=== PATIENT | male | born 1995 | race Two or more races ===

== ENCOUNTER 2016-11-09 16:09 | Emergency (ER) | payer SELFPAY ==
[2016-11-09] MEDS ORDERED: Lidocaine 2% 10 ML Amp INJECT ONE (17:50)
--- NOTE | 2016-11-09 17:57 | EDM.PDOC ---
ED HPI Trauma - General Chief Complaint: Upper Extremity Injury/Pain Stated Complaint: CUT FINGER L HAND Time Seen by Provider: 11/09/16 17:45 Source: Reports: Patient History Limitations: Reports: No limitations - History of Present Illness INITIAL COMMENTS - FREE TEXT/NARRATIVE: 21 yo male cut the L index finger tip with a filet knife at home before arrival. Last tetanus was last year per his report. Here for evaluation/repair. Symptom Onset Date: 11/09/16 Symptom Onset Time: 16:15 Occurred When: just prior to arrival Occurred Where: home Method of Injury: other (cut) Severity: moderate Pain/Injury Location: Reports: upper extremity, left Consciousness: Reports: no loss of consciousness Associated Symptoms: Reports: denies other symptoms Allergies/ADRs: Allergies No Known Allergies Allergy (Verified 11/09/16 18:29) Home Medications: Ambulatory Orders NK [No Known Home Meds] 11/09/16 [Confirmed 11/09/16] Review of Systems - Review of Systems Review Of Systems: See Below Constitutional: Reports: no symptoms Musculoskeletal: Reports: no symptoms Skin: Reports: wound (L index finger tip) Neurological: Reports: No Symptoms Trauma Exam - Physical Exam Exam: See Below Exam Limited By: No limitations General Appearance: Reports: alert, WD/WN, no apparent distress Head: Reports: atraumatic, normocephalic Extremities: Reports: tenderness (L index finger tip) Neurologic: Reports: no motor/sensory deficits, alert, normal mood/affect, oriented x 3 Skin: Reports: Normal color, Other (Near avulsion of the tip of the L index finger. Bleeding controlled at time of exam. ) Course - Vital Signs Text/Narrative:: Digital block with 5 ml of 2% lidocaine. Hand cleaned per nursing. Wound closure with 5-0 Prolene. Dressing applied per nursing. Last Recorded V/S: Last Vital Signs Temp 36.6 C 11/09/16 18:23 Pulse 98 11/09/16 18:23 Resp 14 11/09/16 18:23 BP 140/80 11/09/16 18:23 Pulse Ox 100 11/09/16 18:23 - Orders/Labs/Meds Meds: Medications Discontinued Medications Generic Name Dose Route Start Last Admin Trade Name Freq PRN Reason Stop Dose Admin Lidocaine HCl 10 ml 11/09/16 17:50 Xylocaine-Mpf 2% (Sterile-Keon) INJECT 11/09/16 17:51 ONETIME ONE Departure - Departure Time of Disposition: 18:40 Disposition: Home, Self-Care 01 Preliminary Cause of *Q: multi system organ failure Condition: good Clinical Impression: Finger laceration Qualifiers: Encounter type: initial encounter Qualified Code(s): S61.219A - Laceration without foreign body of unspecified finger without damage to nail, initial encounter
[2016-11-09 18:30] VITALS: BP 140/80
--- NOTE | 2017-03-15 15:04 | ER ---
ADDENDUM REPORT Date Seen: 11/09/2016 Cause of was entered in error, please disregard. MTDD
== END 2016-11-09 19:11 | disposition home or self-care (01) ==
LOC: FB.ED 16:09
DX: S61.211A Laceration without foreign body of left index finger without damage to nail, initial encounter (principal); W26.0XXA Contact with knife, initial encounter; Y92.009 Unspecified place in unspecified non-institutional (private) residence as the place of occurrence of the external cause
CPT/HCPCS: 12001; 99282; 99283